=== PATIENT | male | born 2005 | race Caucasian/White ===

== ENCOUNTER 2024-03-17 14:07 | Outpatient (AMB) | payer OTHER, SELFPAY ==
--- NOTE | 2024-03-17 14:05 | MHC.PC.OV ---
Vital Signs 03/17/24 14:20 Height 5 ft 11.73 in Weight 182 lb 2 oz BMI 24.9 BP 122/78 Blood Pressure Location Lt radial Position Sitting Respiration 16 Pulse 71 Pulse Source Pulse Oximeter Temp 98.4 F Temp Source Oral Pulse Oximetry (%) 98 Oxygen Delivery Method Room Air Intake Visit Reasons: Establish Care Intake Note: New patient visit Allergies cefprozil [From Cefzil] Allergy (Unknown, Verified 03/17/24 14:17) Hives Medication List - Last Reconciled 03/19/24 by Linda Quiñones MD No Known Home Meds Tobacco use date assessed: 03/17/24 Dental Screening Dental Screen Date: 03/17/24 Did you have a dental visit in the last 12 months?: Yes Did you have a dental problem in the last 6 months where you did not have access to dental care?: No Was dental information given to patient?: Patient has dentist HPI HPI Comments History of Present Illness Details The patient is a 19 year old male with no significant past medical history presenting to [facility] care and for physical exam He has no specific concerns. Transferring from pediatrics. [facility] Family History (Updated 03/17/24 @ 14:34 by Shilpa Westfall CMA) Mother Asthma Hypercholesterolemia Father Hypercholesterolemia Maternal Grandmother Cancer Maternal Grandfather Cancer Social History (Updated 03/17/24 @ 14:18 by Shilpa Westfall CMA) Housing: House Patient Tobacco Use Status: Never used Tobacco e-Cigarette/Vaping Use: Never Used Second Hand Smoke Exposure: No Substance Use Type: Marijuana service: No Current occupational status: student Current occupation: student and buyer internship Cognitive needs: No Hearing needs: No Vision needs: No Questionnaire PHQ-9 Over the last 2 weeks, how often have you been bothered by any of the following problems? 1. Little interest or pleasure in doing things: not at all 2. Feeling down, depressed, or hopeless: not at all 3. Trouble falling or staying asleep, or sleeping too much: not at all 4. Feeling tired or having little energy: not at all 5. Poor appetite or overeating: not at all 6. Feeling bad about yourself - or that you are a failure or have let yourself or your family down: not at all 7. Trouble concentrating on things, such as reading the newspaper or watching television: not at all 8. Moving or speaking so slowly that other people could have noticed. Or the opposite - being so fidgety or restless that you have been moving around a lot more than usual: not at all 9. Thoughts that you would be better off or of hurting yourself in some way: not at all Total score: 0 Depression Screening Interpretation: Negative Depression Screening Done: Yes 96207 - PHQ-9 Billing: Yes Source: Developed by Drs. Alexander Ardon, Evette Fitzgerald, Boston Bautista and colleagues, with an educational francis from [employer]. Thrive Questionnaire Date Thrive assessed: 03/17/24 I am a: Patient What is your living situation today?: I have a steady place to live Within the past 12 months, did you worry whether your food would run out before you got money to buy more?: Never true Do you have trouble paying for medicines?: No Do you have trouble getting transportation to medical appointments?: No Do you have trouble paying your heating and electricity bill?: No Do you have trouble taking care of your child, family member or friend?: No Do you have trouble with day-to-day activities such as bathing, preparing meals, shopping, managing finances, etc.?: No Are you currently unemployed and looking for a job?: No Are you interested in more education?: No Please select the resources that you would like help with: None Currently or been in a relationship where the following occur: no concerns reported THRIVE Score: 0 AUDIT C Alcohol Use Questionnaire (AUDIT-C) 1. How often do you have a drink containing alcohol?: 2-4 times a month 2. How many drinks containing alcohol do you have on a typical day when you are drinking?: 3 or 4 3. How often do you have six or more drinks on one occasion?: Less than monthly Total Score: 4 SILVIA-7 AMB Questionnaire SILVIA-7 Date SILVIA - 7 assessed: 03/17/24 Feeling nervous, anxious, or on edge: 1 = Several days Not being able to stop or control worryin = Not at all Worrying too much about different things: 0 = Not at all Trouble relaxin = Not at all Being so restless that it is hard to sit still: 0 = Not at all Becoming easily annoyed or irritable: 0 = Not at all Feeling afraid as if something awful might happen: 0 = Not at all Total SILVIA-7 score (0-4 normal; 5-9 mild; 10-14 moderate; 15-21 severe): 1 Source: Developed by Drs. Alexander Ardon, Evette Fitzgerald, [place] Bautista and colleagues, with an educational francis from [employer]. SILVIA-7 Assessment Billing SILVIA-7 Assessment Tool: SILVIA-7 Assessment 87524 Review of Systems Const Details: ROS CONSTITUTIONAL: Denies weight loss, fever and chills. HEENT: Denies changes in vision and hearing. RESPIRATORY: Denies SOB and cough. CV: Denies palpitations and CP GI: Denies abdominal pain, nausea, vomiting and diarrhea. : Denies dysuria and urinary frequency. MSK: Denies new myalgia and joint pain. SKIN: Denies rash and pruritus. NEUROLOGICAL: Denies headache PSYCHIATRIC: Denies recent changes in mood. Physical exam (Primary Care) Vital Signs: Last Vital Signs Temp 98.4 F 03/17/24 14:20 Pulse 71 03/17/24 14:20 Resp 16 03/17/24 14:20 BP 122/78 03/17/24 14:20 Pulse Ox 98 03/17/24 14:20 Oxygen Delivery Method Room Air 03/17/24 14:20 PHYSICAL EXAM: GENERAL: Alert and oriented x 3. NAD EYES: EOMI. Anicteric. HENT: Moist mucous membranes. No scleral icterus. No cervical lymphadenopathy. LUNGS: Clear to auscultation bilaterally. CARDIOVASCULAR: Regular rate and rhythm. No murmur. No JVD. ABDOMEN: Soft, non-tender +bs EXTREMITIES: No edema. Non-tender. SKIN: No rashes or lesions. Warm. NEUROLOGIC: No focal neurological deficits. CN II-XII grossly intact PSYCHIATRIC: Cooperative. Appropriate mood and affect BMI result Body Mass Index 24.9 Tobacco/Smoking Status: Tobacco use Status Tobacco use date assessed 03/17/24 03/17/24 14:26 Patient Tobacco Use Status Never used Tobacco 03/17/24 14:26 e-Cigarette/Vaping Use Never Used 03/17/24 14:26 PHQ-9: PHQ-9 Score PHQ-9: Total score 0 03/19/24 09:02 Depression Screening Interpretation: Negative Thrive Assessment: Date of Thrive Assessment Date Thrive assessed 03/17/24 03/17/24 14:26 Currently or been in a relationship where the following occur: no concerns reported Assessment and Plan Assessment & Plan (1) Physical exam: Code(s): Z00.00 - Encounter for general adult medical examination without abnormal findings Plan: The patient was evaluated today for annual preventive exam He was counseled about healthy lifestyle habits, including: Receiving age-appropriate immunizations at recommended intervals Recommended screening in men includes: Hypertension in all men Dyslipidemia Colorectal cancer in average-risk men starting at 45 y/o Lung cancer in men 55 to 80 years of age who have at least a 19-[id number]-puwt smoking history and currently smoke or have quit within the past 15 years Coding Level of Care Code New Pt Prev Care 18-39yr(44004 Diagnoses Physical exam Z00.00 Additional Codes SILVIA-7 Assessment Billing - SILVIA-7 Assessment Tool: SILVIA-7 Assessment 52929 ([id number])
[2024-03-17 14:20] VITALS: BP 122/78; PULSE 71; RESP 16; TEMP 36.9; O2SAT 98; BMI 24.9
== END 2024-03-17 14:38 | disposition home or self-care (01) ==
LOC: HO.HMGFM 14:08
PROVIDERS: PCP Internal Medicine; Visit Provider Internal Medicine
DX: Z00.00 Encounter for general adult medical examination without abnormal findings (principal)
CPT/HCPCS: 99385

== ENCOUNTER 2025-08-02 14:11 | Outpatient (AMB) | payer OTHER, SELFPAY ==
--- NOTE | 2025-08-02 14:13 | A.OFFPC_ITS ---
Vital Signs 08/02/25 14:14 Height 5 ft 11.73 in Weight 221 lb 6 oz BMI 30.2 BP 106/64 Blood Pressure Location Rt brachial Position Sitting Respiration 14 Pulse 65 Pulse Source Pulse Oximeter Temp 98 F Temp Source Oral Pulse Oximetry (%) 98 Oxygen Delivery Method Room Air Intake Visit Reasons: pe Intake Note: Physical Radio Recorder Required: No Allergies cefprozil (From Cefzil) Allergy (Unknown, Verified 08/02/25 14:16) Hives Medication List - Last Reconciled 08/02/25 by Lena Cuadra PA-C No Known Home Meds Tobacco use date assessed: 08/02/25 Dental Screening Dental Screen Date: 08/02/25 Did you have a dental visit in the last 12 months?: Yes Did you have a dental problem in the last 6 months where you did not have access to dental care?: No Was dental information given to patient?: Patient has dentist HPI pe HPI Details Patient is a 20-year-old male who presents today for a physical exam. Normally follows with Dr. Quiñones. Denies any significant past medical history. Endo: Sister is a type 1 diabetic diagnosed about 15 years ago. He has checked his blood sugar in the past and states that he can not recall any very high blood sugars but possibly had elevated blood sugars. He has no symptoms. : Sexually active. No symptoms of STDs Fam hx: mother has hld, father hld, sister is t1dm, maternal grandfather had glioblastoma, maternal grandmother skin cancer PFSH Family History Mother Asthma Hypercholesterolemia Father Hypercholesterolemia Maternal Grandmother Cancer Maternal Grandfather Cancer Social History (Updated 08/02/25 @ 14:24 by Shilpa Westfall CMA) Housing: House Alcohol intake: current Patient Tobacco Use Status: Never used Tobacco e-Cigarette/Vaping Use: Never Used Second Hand Smoke Exposure: No Use of substances other than those prescribed or required for medical reasons: Yes Substance Use Type: Marijuana service: No Current occupational status: employed Current occupation: building construction foreman Current occupational exposures/hazards: Yes Cognitive needs: No Hearing needs: No Vision needs: No Questionnaire PHQ-9 Over the last 2 weeks, how often have you been bothered by any of the following problems? 1. Little interest or pleasure in doing things: not at all 2. Feeling down, depressed, or hopeless: not at all 3. Trouble falling or staying asleep, or sleeping too much: several days 4. Feeling tired or having little energy: not at all 5. Poor appetite or overeating: not at all 6. Feeling bad about yourself - or that you are a failure or have let yourself or your family down: not at all 7. Trouble concentrating on things, such as reading the newspaper or watching television: not at all 8. Moving or speaking so slowly that other people could have noticed. Or the opposite - being so fidgety or restless that you have been moving around a lot more than usual: not at all 9. Thoughts that you would be better off or of hurting yourself in some way: not at all Total score: 1 Depression Screening Interpretation: Negative Depression Screening Done: Yes 90004 - PHQ-9 Billing: Yes Source: Developed by Drs. Alexander Ardon, Evette Fitzgerald, [place] Bautista and colleagues, with an educational francis from [employer]. Thrive Questionnaire Date Thrive assessed: 08/02/25 I am a: Patient What is your living situation today?: I have a steady place to live Within the past 12 months, did the food you bought not last and you didn't have the money to get more?: Never true Within the past 12 months, did you worry whether your food would run out before you got money to buy more?: Never true Do you have trouble paying for medicines?: No Do you have trouble getting transportation to medical appointments?: No Do you have trouble paying your heating and electricity bill?: No Do you have trouble taking care of your child, family member or friend?: No Do you have trouble with day-to-day activities such as bathing, preparing meals, shopping, managing finances, etc.?: No Are you currently unemployed and looking for a job?: No Are you interested in more education?: No Please select the resources that you would like help with: None Currently or been in a relationship where the following occur: No concerns reported THRIVE Score: 0 AUDIT C Alcohol Use Questionnaire (AUDIT-C) 1. How often do you have a drink containing alcohol?: 2-4 times a month 2. How many drinks containing alcohol do you have on a typical day when you are drinking?: 3 or 4 3. How often do you have six or more drinks on one occasion?: Never Total Score: 3 SILVIA-7 AMB Questionnaire SILVIA-7 Date SILVIA - 7 assessed: 03/17/24 Source: Developed by Drs. Alexander Ardon, Evette Fitzgerald, [place] Bautista and colleagues, with an educational francis from [employer]. Physical exam (Primary Care) Vital Signs: Last Vital Signs Temp 98 F 08/02/25 14:14 Pulse 65 08/02/25 14:14 Resp 14 08/02/25 14:14 BP 106/64 08/02/25 14:14 Pulse Ox 98 08/02/25 14:14 Oxygen Delivery Method Room Air 08/02/25 14:14 BMI result Body Mass Index 30.2 Tobacco/Smoking Status: Tobacco use Status Tobacco use date assessed 08/02/25 08/02/25 14:21 Patient Tobacco Use Status Never used Tobacco 08/02/25 14:24 e-Cigarette/Vaping Use Never Used 08/02/25 14:24 PHQ-9: PHQ-9 Score PHQ-9: Total score 1 08/02/25 14:24 Depression Screening Interpretation: Negative Thrive Assessment: Date of Thrive Assessment Date Thrive assessed 08/02/25 08/02/25 14:24 Currently or been in a relationship where the following occur: No concerns reported Const Orientation/consciousness: patient oriented x3 HENMT Ears: hearing grossly normal bilaterally and TM's normal bilaterally General nose exam: No nasal polyps present Face and sinus: Yes sinuses nontender Mouth: Normal oral and palatal mucosa present Eyes Pupils: Equal, round and reactive pupils present EOM: EOMs intact bilaterally Neck Neck: Yes full ROM and Yes no lymphadenopathy Thyroid: Thyroid normal Chest Chest palpation & inspection: normal inspection of the chest Resp Auscultation: clear to auscultation bilaterally Cardio Rate: regular rate Rhythm: regular rhythm Heart sounds: S1 normal heart sound present and S2 normal heart sound present Peripheral pulses: Peripheral pulses 2+ throughout GI Other: Soft, nontender Auscultation: normal bowel sounds Rectal Exam - Male: Yes deferred General: Yes no CVA tenderness Back/Spine/Pelvis Other: Nontender Back: no CVA tenderness Skin General skin exam: no rashes or lesions noted Neuro General: patient oriented x3, gait normal, CN's II-XI intact bilaterally and deep tendon reflexes 2+ bilaterally Cranial nerves: Yes Equal, round and reactive pupils present Motor exam (neuro): 5/5 motor strength present throughout Sensory Exam: double simultaneous stimulation for sensation normal Coordination: [id number] test normal and Romberg test negative Extrem General: Yes normal to inspection and Yes full ROM Psych Affect: normal affect Attitude: cooperative Thought process: Normal thought process present Thought content: Normal thought content present Insight: Good insight present (Psych) Judgement: Good judgement present (Psych) Coding Level of Care Code Est Pt Prev Care 18-39y(31543) Diagnoses Routine general medical examination at a health care facility Z00.00 Family history of type 1 diabetes mellitus Z83.3 Additional Codes PHQ-9 - 59236 - PHQ-9 Billing: Yes ([id number]) Assessment & Plan Assessment & Plan (1) Routine general medical examination at a [facility] care facility: Code(s): Z00.00 - Encounter for general adult medical examination without abnormal findings Plan: Health maintenance reviewed Labs ordered STD screening ordered We will follow up pending test results (2) Family history of type 1 diabetes mellitus: Code(s): Z83.3 - Family history of diabetes mellitus Category: Medical Plan: Labs ordered Orders: Orders Complete Blood Count Auto Diff Today R73.01 - Impaired fasting glucose, Z00.00 - Encounter for general adult medical examination without abnormal findings, Z01.89 - Encounter for other specified special examinations, Z83.3 - Family history of diabetes mellitus TSH reflex Free T4 Today R73.01 - Impaired fasting glucose, Z00.00 - Encounter for general adult medical examination without abnormal findings, Z01.89 - Encounter for other specified special examinations, Z83.3 - Family history of diabetes mellitus Glutamic acid decarboxylase Ab Today R73.01 - Impaired fasting glucose, Z00.00 - Encounter for general adult medical examination without abnormal findings, Z01.89 - Encounter for other specified special examinations, Z83.3 - Family history of diabetes mellitus Islet Cell Antibody Scrn/Titer Today R73.01 - Impaired fasting glucose, Z00.00 - Encounter for general adult medical examination without abnormal findings, Z0 1.89 - Encounter for other specified special examinations, Z83.3 - Family history of diabetes mellitus Comprehensive [place]. Panel Fast Today R73.01 - Impaired fasting glucose, Z00.00 - Encounter for general adult medical examination without abnormal findings, Z01.89 - Encounter for other specified special examinations, Z83.3 - Family history of diabetes mellitus Lipid Panel Today R73.01 - Impaired fasting glucose, Z00.00 - Encounter for general adult medical examination without abnormal findings, Z01.89 - Encounter for other specified special examinations, Z83.3 - Family history of diabetes mellitus C Peptide Today R73.01 - Impaired fasting glucose, Z00.00 - Encounter for general adult medical examination without abnormal findings, Z01.89 - Encounter for other specified special examinations, Z83.3 - Family history of diabetes mellitus HIV Ab/Ag Today Z20.2 - Contact with and (suspected) exposure to infections with a predominantly sexual mode of transmission Hepatitis C Antibody Today Z20.2 - Contact with and (suspected) exposure to infections with a predominantly sexual mode of transmission CT NG by PCR Urine Today R30.0 - Dysuria
[2025-08-02 14:14] VITALS: BP 106/64; PULSE 65; RESP 14; TEMP 36.6; O2SAT 98; BMI 30.2
== END 2025-08-02 14:43 | disposition home or self-care (01) ==
LOC: HO.HMCFM 14:12
PROVIDERS: PCP Internal Medicine; Visit Provider Physician Assistant
DX: Z00.00 Encounter for general adult medical examination without abnormal findings (principal); Z83.3 Family history of diabetes mellitus

== ENCOUNTER → 2025-08-02 14:11 | Outpatient (BNVA) | payer OTHER, SELFPAY | PROVIDERS: PCP Internal Medicine; Visit Provider Physician Assistant | DX: Z00.00 Encounter for general adult medical examination without abnormal findings (principal); E10.9 Type 1 diabetes mellitus without complications; R30.0 Dysuria | CPT/HCPCS: 96127 ==

== ENCOUNTER 2025-08-03 15:27 | Outpatient (REF) | payer OTHER, SELFPAY ==
[2025-08-03 18:17] LABS: MANUAL DIFF FLAG NO
[2025-08-03 18:23] LABS: Hematocrit 46.4 % (42.0-52.0); Hemoglobin 15.8 g/dl (14.0-18.0); Imm Gran Abs Auto 0.03 X10*3/uL (0.00-0.03); Imm Gran Pct Auto 0.4 % (0.0-0.4); Lymphocytes Absolute Auto 2.8 X10*3/uL (1.2-4.9); Mean Corpuscular HGB Conc 34.1 g/dl (31.0-36.0); Mean Corpuscular Hemoglobin 29.7 pg (27.0-33.0); Mean Corpuscular Volume 87.2 fL (80.0-98.0); NRBC Abs Auto 0.000 X10*3/uL (0.0-0.012); NRBC Pct Auto 0.0 /100WBC (0.0-0.2); Platelet Count 293 X10*3/uL (160-400); Red Blood Count 5.32 X10*6/uL (4.60-5.80); White Blood Count 7.6 X10*3/uL (4.8-10.8)
[2025-08-03 18:59] LABS: Alanine Aminotransferase 25 U/L (0-40); Albumin Level 4.7 g/dL (3.5-5.0); Alkaline Phosphatase 67 U/L (39-117); Anion Gap 11 (12-20); Aspartate Amino Transferase 24 U/L (5-37); Blood Urea Nitrogen 16 mg/dL (9-16); Calcium 9.4 mg/dL (8.4-10.2); Carbon Dioxide 26 mmol/L (22-29); Chloride 106 mmol/L (96-108); Cholesterol 149 mg/dL (<200); Estimated Glomerular Filt Rate > 60; HDL Cholesterol 37 mg/dL (>40); Potassium 4.2 mmol/L (3.3-5.1); Sodium 139 mmol/L (135-145); Total Protein 7.4 g/dL (6.5-8.0); Triglycerides 75 mg/dL (<150)
[2025-08-04 02:47] LABS: CT PCR Urine NOT DETECTED (Not Detect.); NG PCR Urine NOT DETECTED (Not Detect.)
[2025-08-04 08:30] LABS: HIV Num 1 0.07 S/CO (0.00-0.99); ~HepC Num1 0.10 S/CO (0.00-0.79); ~Hepatitis C Antibody Nonreactive (Nonreactive)
== END 2025-08-03 15:28 | disposition home or self-care (01) ==
LOC: HO.WFDLDS 15:27
PROVIDERS: Visit Provider Physician Assistant
DX: Z00.00 Encounter for general adult medical examination without abnormal findings (principal); Z01.89 Encounter for other specified special examinations; R73.01 Impaired fasting glucose; Z83.3 Family history of diabetes mellitus; Z20.2 Contact with and (suspected) exposure to infections with a predominantly sexual mode of transmission; R30.0 Dysuria; Z13.6 Encounter for screening for cardiovascular disorders; Z11.59 Encounter for screening for other viral diseases; Z11.4 Encounter for screening for human immunodeficiency virus [HIV]
CPT/HCPCS: 80053; 80061; 84443; 84681; 85025; 86341; 86803; 87389; 87491; 87591